=== PATIENT | female | born 1970 | race Caucasian/White ===

== ENCOUNTER 2024-01-20 12:39 | Emergency (ER) | payer SELFPAY ==
[2024-01-20 12:40] VITALS: BP 131/91
--- NOTE | 2024-01-20 12:58 | ED.GENMED ---
History of Present Illness
General
Chief Complaint: Back Pain
Source: patient
Exam Limitations: none
Time Seen by Provider: 01/20/24 12:48
Nursing documentation reviewed up to this point in time: agreed with
Travel History
Have you had any contact with someone who has COVID-19?: No
Do you have any symptoms of coronavirus? Fever > 100 degrees, chills, cough, shortness of breath, sore throat, loss of taste or smell, muscle aches, or headache?: No
History of Present Illness
History of Present Illness:
53-year-old female with history of kidney stones, Celio's thyroiditis presents stating yesterday she awakened with right lower back/flank pain felt like a pulled muscle. No recollection of overuse or injury. She states that the pain resolved
as a day wore on until 6 PM when she had a crampy ache radiating from that area around to her right lower quadrant. 9:30 PM when getting ready for bed she had a sudden worse pain shooting around to the right lower abdomen. She was uncomfortable
all night with no relief from Motrin, heating pad or Naprosyn this morning. She did go to work today working with pain 05/07. She denies fever or chills. She denies N/V/D/C.
Past History
Past History
ED Past Medical History: Hypothyroidism (Celio's thyroiditis) and Other (Kidney stone July 2006)
ED Past Surgical History: None
Social History
Tobacco: Non-smoker
Alcohol: Occasional
Personal:
Living: with family
Employment: Employed
Review of Systems
Review of Systems
Allergies reviewed?: Yes
All Other Systems: ROS reviewed and negative except as documented in HPI and ROS
Constitutional: Denies fever or fatigue
Respiratory: Denies trouble breathing
Cardiac: Denies chest pain
ABD/GI: Reports abdominal pain (R lower abdominal/groin pain) and diarrhea; Denies nausea or vomiting
: Denies dysuria, difficulty voiding or urgency
Musculoskeletal: Reports back pain (R lower back)
Skin: Reports no symptoms
Neurological: Reports no symptoms
Phy Exam
Physical Exam
Physical Exam:
GENERAL: No acute distress. A&Ox3.
CONSTITUTIONAL: Afebrile.
RESPIRATORY: Regular respirations, nonlabored, lungs clear.
CARDIOVASCULAR: Regular rate and rhythm, no murmurs, no rubs.
GI: Soft, nontender to palpation, but subjectively pain 'deep' RLQ. Nnormal BS
MUSCULOSKELETAL: Moves with ease. Well perfused.
SKIN: Warm, dry, pink
PSYCH: Normal mood and affect. Well kept, interactive and appropriate
NEUROLOGIC: Awake, alert and oriented. No focal neurological deficits
Course
Orders/Labs/Results
Orders:
Orders
01/20/24 12:57
CT Abd/pel Without Iv Or Oral Urgent
Comment:
Reason For Exam: R flank and lower abd pain
01/20/24 13:13
Complete Blood Count/With Diff Urgent
Comprehensive Metabolic Panel Urgent
HCG, Serum Qualitative Screen Urgent
Comment: ADDED
01/20/24 13:17
Add On- LAB Urgent
Tests Added?: serum hcg qualitative
01/20/24 14:01
Urinalysis Reflex To Culture Urgent
Date Specimen was Collected: 01/20/24
Time Specimen was Collected: 13:12
Abnormal Lab Results
01/20/24
13:13
BUN 21 H mg/dl
(7-17)
01/20/24 13:13
01/20/24 13:13
Vital Signs
Initial and Last Documented VS:
Initial Vital Signs
Temp Pulse Resp BP Pulse Ox
99.0 F 74 16 131/91 98
01/20/24 12:40 01/20/24 12:40 01/20/24 12:40 01/20/24 12:40 01/20/24 12:40
Last Documented Vital Signs
Temp Pulse Resp BP Pulse Ox
99.0 F 65 18 109/78 97
01/20/24 12:40 01/20/24 15:07 01/20/24 15:07 01/20/24 15:07 01/20/24 15:07
MDM/Problems Addressed
Differential Diagnosis Includes:
Kidney stone, UTI, appendicitis, musculoskeletal
MDM/Problems Addressed:
53-year-old female with history of kidney stones, Celio's thyroiditis presents stating yesterday she awakened with right lower back/flank pain felt like a pulled muscle. No recollection of overuse or injury. She states that the pain resolved
as a day wore on until 6 PM when she had a crampy ache radiating from that area around to her right lower quadrant. 9:30 PM when getting ready for bed she had a sudden worse pain shooting around to the right lower abdomen. She was uncomfortable
all night with no relief from Motrin, heating pad or Naprosyn this morning. She did go to work today working with pain 05/07. She denies fever or chills. She denies N/V/D/C.
CBC normal
CMP normal
UA negative
Abdomen/pelvis CT without IV or oral contrast radiology report read: IMPRESSION:
There are small renal calculi but no evidence of obstruction
There is a tiny 2 mm pulmonary nodule in the right middle lobe. If patient is low risk no follow-up will be needed.
Results were communicated to the pulmonary nodule.
Patient does not smoke, is low risk
3:00 PM
All results discussed with patient. She was given copies of everything.
Out of bed and pain is aggravated with her going from sit to stand, most likely musculoskeletal pain.
Prescription for Flexeril sent to her pharmacy. She was told not to drive or operate any machinery within 8 hours of taking it.
*Critical Care Note
Total Time (30-74mins, 75-104mins- exclusive of procedures): Not Applicable
ED Attending Note
-
Portions of this chart may have been created with voice recognition software.� Occasional wrong word or��sound alike� substitutions may have occurred due to the inherent limitations of voice recognition software.
Discharge Plan
Departure
Patient Disposition: Home (Routine Discharge)
Date of Disposition: 01/20/24
Time of Disposition: 14:57
Patient with high blood pressure during this ER visit?: No
Condition: Good
Discharge Problem:
Acute low back pain, Right lower quadrant abdominal pain
Instructions: Back Pain, Musculoskeletal Pain
Prescriptions:
New
cyclobenzaprine 10 mg tablet
10 mg PO BID PRN (Reason: muscle pain/back pain) Qty: 14 0RF
No Action
B/C Pill
PO . DIRECTED
hydrocodone-acetaminophen 1 EACH tablet
1 ea PO Q4HPRN PRN (Reason: pain) Qty: 15 0RF
indomethacin 50 MG capsule
50 mg PO TID Qty: 15 0RF
Rx Instructions:
take with food
Referrals:
Shaw Figueroa, DO [Family Provider] - As needed
Activity Restrictions/Additional Instructions:
As we discussed, nothing worrisome in your workup here today. Specifically your blood work and urinalysis are normal
Your CAT scan shows nothing worrisome
Interventions
Interventions:
*Risk Screen - Suicide Last Done: 01/20/24 13:22
*ED COVID-19 Vaccine History Last Done: 01/20/24 12:40
*Nursing Disposition Last Done: 01/20/24 15:47
ED-Musculoskeletal Assessment Last Done: 01/20/24 13:22
Discharge Date and Time
Discharge Date/Time: 01/20/24 15:47
Print Language: LUX[place]
[2024-01-20 13:26] LABS: % Eosinophils 2.4 % (0-6); % Immature Granulocytes 0.2 % (0-0.5); % Lymphocytes 27.2 % (20.5-51.1); % Monocytes 6.9 % (1.7-9.3); % Neutrophils 62.3 % (42.2-75.2); Absolute Basophils 0.1 10^3/uL (0-0.2); Absolute Eosinophils 0.1 10^3/uL (0-0.7); Absolute Lymphocytes 1.4 10^3/uL (1.2-3.4); Absolute Monocytes 0.4 10^3/uL (0.1-0.6); Absolute Neutrophils 3.2 10^3/uL (1.4-6.5); Mean Corp Hgb Conc. 33.3 g/dL (33.0-37.0); Mean Corpuscular Hgb 29.7 pg (27.0-31.0); Mean Platelet Volume 10.1 fL (7.4-10.4); Nucleated Red Blood Cells % 0 %; Platelet Count 213 10^3/uL (130-400); Red Blood Cell Count 4.38 10^6/uL (4.20-5.40); Red Cell Dist. Width 12.2 % (11.5-14.5); White Blood Cell Count 5.1 10^3/uL (4.8-10.8)
[2024-01-20 13:33] LABS: ALT (SGPT) 14 U/L (0-35); AST (SGOT) 23 U/L (14-36); Albumin 4.2 g/dl (3.5-5.0); Alkaline Phosphatase 53 U/L (38-126); Blood Urea Nitrogen 21 mg/dl (7-17); Calcium 9.4 mg/dl (8.4-10.2); Carbon Dioxide 29 mmol/L (22-30); Chloride 104 mmol/L (98-107); Glucose 91 mg/dl (70-99); Potassium 4.3 mmol/L (3.5-5.1); Sodium 136 mmol/L (135-145); Total Bilirubin 0.4 mg/dl (0.2-1.3); Total Protein 6.6 g/dl (6.3-8.2); eGFR > 60.00
[2024-01-20 13:46] LABS: HCG, Serum Qualitative Screen Negative
[2024-01-20 14:22] LABS: Urine Albumin Negative (Neg - Trace); Urine Bilirubin Negative (Negative); Urine Character Clear (Clear); Urine Color Yellow; Urine Glucose Negative (Negative); Urine Ketone Negative (Negative); Urine Leukocyte Negative (Negative); Urine Nitrite Negative (Negative); Urine Occult Blood Negative (Negative); Urine Urobilinogen Negative (Neg - 1+); Urine pH 6.5 (5.0-9.0)
[2024-01-20 15:07] VITALS: BP 109/78
== END 2024-01-20 15:47 | disposition home or self-care (01) ==
LOC: EMR 12:39
PROVIDERS: Registered Nurse; EMERGENCY PHYSICIAN Emergency Medicine; FAMILY PHYSICIAN Family Medicine
DX: M54.50 Low back pain, unspecified (principal); R10.31 Right lower quadrant pain; E06.3 Autoimmune thyroiditis; R91.1 Solitary pulmonary nodule; Z87.442 Personal history of urinary calculi
CPT/HCPCS: 99284; 74176; 80053; 81003; 84703; 85025

== ENCOUNTER 2024-12-25 11:00 | Emergency (ER) | payer OTHER, SELFPAY ==
[2024-12-25 11:07] VITALS: BP 137/85
--- NOTE | 2024-12-25 12:10 | ED.GENMED ---
History of Present Illness
General
Chief Complaint: Headache
Source: patient and spouse
Exam Limitations: none
Time Seen by Provider: 12/25/24 11:47
Nursing documentation reviewed up to this point in time: agreed with
History of Present Illness
History of Present Illness:
54 yo female presents emergency department complaining of headache for the past 4 days. It hurts at the top of her head. She also notes some pain in her left posterior neck.
Past History
Past History
ED Past Medical History: Hypothyroidism (Celio's thyroiditis) and Other (Kidney stone July 2006)
ED Past Surgical History: None
Social History
Tobacco: Non-smoker
Alcohol: Occasional
Personal:
Living: with family
Employment: Employed
Review of Systems
Review of Systems
Allergies reviewed?: Yes
All Other Systems: Not applicable
Constitutional: Reports no symptoms
EENT: Reports no symptoms
Respiratory: Reports no symptoms
Cardiac: Reports no symptoms
ABD/GI: Reports no symptoms
: Reports no symptoms
Musculoskeletal: Reports no symptoms
Skin: Reports no symptoms
Neurological: Reports headache
Endocrine: Reports no symptoms
Hematologic/Lymphatic: Reports no symptoms
Psychiatric: Reports no symptoms
Phy Exam
Physical Exam
Physical Exam:
Physical Exam
General: no apparent distress, not acutely ill
Neck: supple. no meningeal signs. normal posterior pharynx, left posterior lymphadenopathy
Heart: s1/s2 regular rate and rhythm, no murmur. equal radial
pulses.
HEENT: Pupils equal round reactive to light, EOMI
Lungs: no acute respiratory distress. clear bilaterally
Abdomen: normal bowel sounds. not tender. no CVAT
Neuro: alert and oriented. no focal neurological deficits cranial nerves II through XII intact
Skin: no rash
Psychiatric: well kept. interactive and cooperative
Extremities: no edema. no calf tenderness. negative homans. good distal pulses
Course
Orders/Labs/Results
Orders:
Orders
12/25/24 12:06
IV Insert/Care/Rem.- Treatment PRN
12/25/24 12:07
CT Head W/o Iv Contrast Urgent
Comment:
Reason For Exam: headache, 3 days
Cardiac Monitoring- Treatment ONCE
Diphenhydramine [Benadryl] 25 mg IV NOW STA
Ketorolac [Toradol] 15 mg IV NOW STA
Metoclopramide [Reglan] 10 mg IV NOW STA
12/25/24 12:22
Complete Blood Count/With Diff Urgent
Comprehensive Metabolic Panel Urgent
Monotest Urgent
Abnormal Lab Results
12/25/24
12:22
WBC 4.2 L 10^3/uL
(4.8-10.8)
MCHC 32.9 L g/dL
(33.0-37.0)
12/25/24 12:22
12/25/24 12:22
Vital Signs
Initial and Last Documented VS:
Initial Vital Signs
Temp Pulse Resp BP Pulse Ox
98.5 F 75 16 137/85 98
12/25/24 11:07 12/25/24 11:07 12/25/24 11:07 12/25/24 11:07 12/25/24 11:07
Last Documented Vital Signs
Temp Pulse Resp BP Pulse Ox
98.5 F 60 18 113/75 98
12/25/24 11:07 12/25/24 13:21 12/25/24 13:21 12/25/24 13:21 12/25/24 13:21
MDM/Problems Addressed
Differential Diagnosis Includes:
Migraine, viral syndrome
MDM/Problems Addressed:
54 yo female with headache, likely migraine. CT head normal, do not suspect meningitis or encephalitis.
*Radiology
Radiology exam reviewed: radiology read reviewed (CT head no acute findings)
*Pulse Oximetry
Patient hypoxic: no
*Critical Care Note
Total Time (30-74mins, 75-104mins- exclusive of procedures): Not Applicable
Data Reviewed
Further Testing Considered But Not Given:
Lumbar puncture not indicated
Patient Management
Social determinants of health affecting care: Living situation and Strong social support
Escalation/DeEscalation of care consider admission/obs:
Admit not indicated
ED Attending Note
-
Portions of this chart may have been created with voice recognition software.� Occasional wrong word or��sound alike� substitutions may have occurred due to the inherent limitations of voice recognition software.
Discharge Plan
Departure
Patient Disposition: Home (Routine Discharge)
Date of Disposition: 12/25/24
Time of Disposition: 14:48
Patient with high blood pressure during this ER visit?: No
Condition: Good
Discharge Problem:
Headache
Instructions: Headache, Adult (DC)
Prescriptions:
No Action
B/C Pill
PO . DIRECTED
hydrocodone-acetaminophen 1 EACH tablet
1 ea PO Q4HPRN PRN (Reason: pain) Qty: 15 0RF
indomethacin 50 MG capsule
50 mg PO TID Qty: 15 0RF
Rx Instructions:
take with food
cyclobenzaprine 10 mg tablet
10 mg PO BID PRN (Reason: muscle pain/back pain) Qty: 14 0RF
Referrals:
Shaw Figueroa, [Family Provider] - Call in 1-3 days for appt
Interventions
Interventions:
*Risk Screen - Suicide Last Done: 12/25/24 11:07
*Neglect/Abuse Screening Last Done: 12/25/24 11:07
ED- Neurological Assessment Last Done: 12/25/24 11:41
Discharge Date and Time
Print Language: [place]
[2024-12-25] MEDS: BENADRYL 25 MG IV (12:24)
[2024-12-25] MEDS: REGLAN 10 MG IV (12:25)
[2024-12-25] MEDS: TORADOL 15 MG IV (12:25)
[2024-12-25 12:32] LABS: % Basophils 0.7 % (0-2); % Eosinophils 3.1 % (0-6); % Lymphocytes 27.6 % (20.5-51.1); % Monocytes 7.7 % (1.7-9.3); % Neutrophils 60.9 % (42.2-75.2); Absolute Eosinophils 0.1 10^3/uL (0-0.7); Absolute Lymphocytes 1.2 10^3/uL (1.2-3.4); Absolute Monocytes 0.3 10^3/uL (0.1-0.6); Absolute Neutrophils 2.5 10^3/uL (1.4-6.5); Hematocrit 39.8 % (37.0-47.0); Hemoglobin 13.1 g/dL (12.0-16.0); Mean Corp Hgb Conc. 32.9 g/dL (33.0-37.0); Mean Corpuscular Hgb 29.1 pg (27.0-31.0); Mean Corpuscular Volume 88.4 fL (81.0-99.0); Mean Platelet Volume 10.1 fL (7.4-10.4); Nucleated Red Blood Cells % 0 %; Platelet Count 238 10^3/uL (130-400); Red Cell Dist. Width 12.3 % (11.5-14.5); White Blood Cell Count 4.2 10^3/uL (4.8-10.8)
[2024-12-25 12:47] LABS: ALT (SGPT) 16 U/L (0-35); AST (SGOT) 23 U/L (14-36); Albumin 4.4 g/dl (3.5-5.0); Alkaline Phosphatase 58 U/L (38-126); Blood Urea Nitrogen 15 mg/dl (7-17); Calcium 9.7 mg/dl (8.4-10.2); Carbon Dioxide 27 mmol/L (22-30); Chloride 107 mmol/L (98-107); Glucose 95 mg/dl (70-99); Potassium 4.3 mmol/L (3.5-5.1); Sodium 141 mmol/L (135-145); Total Bilirubin 0.6 mg/dl (0.2-1.3); Total Protein 6.7 g/dl (6.3-8.2); eGFR > 60.00
[2024-12-25 12:49] LABS: Monotest Negative (Negative)
[2024-12-25 13:21] VITALS: BP 113/75
[2024-12-25 15:17] VITALS: BP 118/70
== END 2024-12-25 15:26 | disposition home or self-care (01) ==
LOC: EMR 11:00
PROVIDERS: EMERGENCY PHYSICIAN Emergency Medicine; FAMILY PHYSICIAN Family Medicine
DX: R51.9 Headache, unspecified (principal); M54.2 Cervicalgia; E06.3 Autoimmune thyroiditis; Z87.442 Personal history of urinary calculi
CPT/HCPCS: 99284; 96374; 96375; 70450; 80053; 85025; 86308

== ENCOUNTER 2025-02-09 06:15 | Day surgery (SDC) | payer OTHER, SELFPAY | END 2025-02-09 15:24 | disposition home or self-care (01) | LOC: GI 06:15 | PROVIDERS: ATTENDING PHYSICIAN Internal Medicine | DX: Z12.11 Encounter for screening for malignant neoplasm of colon (principal); K57.30 Diverticulosis of large intestine without perforation or abscess without bleeding; D12.4 Benign neoplasm of descending colon | CPT/HCPCS: 45385; 88305 ==